=== PATIENT | female | born 1955 | race Caucasian/White ===

== ENCOUNTER 2018-03-04 13:13 | Emergency (ER) | payer OTHER ==
[~2018-03-04 13:13] MED LIST changes: -CLON1POW MC
[2018-03-04] MEDS ORDERED: CLON1POW MC (13:21)
--- NOTE | 2018-03-04 13:24 | ER Report ---
History and Physical Time Seen By MD: 13:22 HPI/ROS CHIEF COMPLAINT: Weakness, shortness of breath, chest pain HISTORY OF PRESENT ILLNESS: Patient is a 62-year-old female who is an insulin requiring diabetic who also smokes and has hypertension. For the past 2-3 week she's been complaining of episodes of chest pain but also with shortness of breath and pleuritic type chest pain. She was seen and treated initially by her primary care provider for an upper respiratory infection with some antibiotics she reports some improvement however in the last 4 days the chest pain and shortness of breath has gotten worse and so she was seen by her primary care provider today and with her risk factors she was instructed to come to the emergency department for evaluation. Patient has prior history of TIA in the past in 2010. She is not on any type of anticoagulation. She has no known prior cardiac history. REVIEW OF SYSTEMS: Constitutional: No fever, no chills. Generalized weakness weakness Eyes: No discharge. ENT: No sore throat. Cardiovascular: Chest pain Respiratory: Shortness of breath pleuritic chest pain Gastrointestinal: No abdominal pain, no vomiting. Genitourinary: No hematuria. Musculoskeletal: No back pain. Skin: No rashes. Neurological: No headache. Allergies: Coded Allergies: Quinolones (Verified Allergy, Mild, 03/04/18) Sulfa (Sulfonamide Antibiotics) (Verified Allergy, Mild, 03/04/18) Home Meds Active Scripts Cyclobenzaprine Hcl (CYCLOBENZAPRINE HCL) 10 Mg Tablet, 10 MG PO TID, #30 TAB TAKE 1 TABLET BY MOUTH THREE TIMES A DAY Prov:ESAU KAUFMAN [employer] 07/22/13 Reported Medications Clonazepam (CLONAZEPAM) 1 Gm Powder, 1 GM MC, PWD 03/04/18 Insulin Detemir (LEVEMIR) 100 Unit/Ml Injs, 100 UNIT SUBQ SS 03/16/17 Aspirin (ASPIRIN) 325 Mg Tablet, 650 MG PO QDAY, TAB 03/16/17 Enalapril Maleate (ENALAPRIL MALEATE) 10 Mg Tablet, 15 MG PO QDAY 07/22/13 Discontinued Scripts Dicyclomine Hcl (DICYCLOMINE HCL) 20 Mg Tablet, 20 MG PO QID, #60 TAB 3 Refills Prov:GRACE ORTEGA MD 03/27/17 Ondansetron (ZOFRAN ODT) 4 Mg Tab.rapdis, 4 MG PO Q6H PRN for NAUSEA/VOMITING, #20 TAB.JANA 0 Refills Prov:JULIETTE BELLA MD 03/16/17 Oxycodone Hcl/Acetaminophen (PERCOCET 5-325 MG TABLET) 1 Each Tablet, 1 EACH PO Q4H PRN for PAIN, #15 TAB 0 Refills Prov:JULIETTE BELLA MD 03/16/17 Past Medical/Surgical History Past medical history for insulin requiring diabetes, hypertension, history of smoking Reviewed Nurses Notes: Yes Hx Smoking: Yes (1/3ppd) Smoking Status: Current: Every Day Smoker Hx Substance Use Disorder: No Hx Alcohol Use: Yes (OCC) Constitutional Vital Sign - Last 24 Hours 03/04/18 03/04/18 03/04/18 03/04/18 13:17 13:21 13:28 13:30 Temp 98.0 Pulse 96 97 Resp 16 18 B/P (MAP) 137/90 (106) 137/90 125/62 (83) Pulse Ox 92 94 O2 Delivery Room Air Nasal Cannula O2 Flow Rate 2 03/04/18 03/04/18 03/04/18 03/04/18 13:35 13:48 13:48 13:53 Pulse 92 Resp 18 Pulse Ox 96 92 O2 Delivery Nasal Cannula Nasal Cannula O2 Flow Rate 2.0 2.0 1.0 03/04/18 03/04/18 03/04/18 03/04/18 13:53 13:58 14:03 14:33 Pulse 89 101 100 94 Resp 18 18 19 Pulse Ox 93 93 96 O2 Delivery Nasal Cannula Nasal Cannula Nasal Cannula O2 Flow Rate 2 2 2 03/04/18 03/04/18 03/04/18 03/04/18 14:48 14:53 15:00 15:08 Pulse 86 89 89 Resp 10 20 24 B/P (MAP) 92/64 (73) Pulse Ox 93 92 96 O2 Delivery Nasal Cannula O2 Flow Rate 2 03/04/18 03/04/18 03/04/18 03/04/18 15:23 15:30 15:38 15:53 Pulse 84 85 85 Resp 11 12 28 B/P (MAP) 118/61 (80) Pulse Ox 95 96 93 O2 Delivery Nasal Cannula Nasal Cannula O2 Flow Rate 2 2 03/04/18 03/04/18 03/04/18 16:00 16:08 16:23 Pulse 84 87 Resp 17 18 B/P (MAP) 120/64 (82) Pulse Ox 93 97 O2 Delivery Nasal Cannula Nasal Cannula O2 Flow Rate 2 2 Physical Exam General Appearance: The patient is alert, has no immediate need for airway protection and no signs of toxicity. Eyes: Pupils equal and round no pallor or injection. ENT, Mouth: Mucous membranes are moist. Respiratory: There are no retractions, lungs are clear to auscultation. Cardiovascular: Heart is tachycardic with regular rhythm and occasional PVCs Gastrointestinal: Abdomen is soft and non tender, no masses, bowel sounds normal. Neurological: Awake and alert Skin: Warm and dry, no rashes. Musculoskeletal: Neck is supple non tender. Extremities are nontender, nonswollen and have full range of motion. Medical Decision Making Data Points Result Diagram: 03/04/18 1322 03/04/18 1322 Laboratory Hematology Test 03/04/18 13:22 Red Blood Count 5.10 M/uL (4.17-5.56) Mean Corpuscular Volume 83.8 fL (80.0-96.0) Mean Corpuscular Hemoglobin 27.4 pg (26.0-33.0) Mean Corpuscular Hemoglobin Concent 32.7 g/dL (32.0-36.0) Red Cell Distribution Width 13.3 % (11.5-14.5) Mean Platelet Volume 10.4 fL (7.2-11.1) Neutrophils (%) (Auto) 49.7 % (39.4-72.5) Lymphocytes (%) (Auto) 39.7 % (17.6-49.6) Monocytes (%) (Auto) 9.3 % (4.1-12.4) Eosinophils (%) (Auto) 0.5 % (0.4-6.7) Basophils (%) (Auto) 0.8 % (0.3-1.4) Nucleated RBC Relative Count (auto) 0.1 /100WBC Neutrophils # (Auto) 3.7 K/uL (2.0-7.4) Lymphocytes # (Auto) 3.0 K/uL (1.3-3.6) Monocytes # (Auto) 0.7 K/uL (0.3-1.0) Eosinophils # (Auto) 0.0 K/uL (0.0-0.5) Basophils # (Auto) 0.1 K/uL (0.0-0.1) Nucleated RBC Absolute Count (auto) 0.01 K/uL Prothrombin Time 13.2 seconds (12.0-14.4) Prothromb Time International Ratio 1.00 Activated Partial Thromboplast Time 26 seconds (23-35) D-Dimer Quantitative (PE/DVT) 3.27 ug/ml (0-0.50) Sodium Level 138 mmol/L (137-145) Potassium Level 3.7 mmol/L (3.5-5.0) Chloride Level 106 mmol/L (98-107) Carbon Dioxide Level 26 mmol/L (22-31) Blood Urea Nitrogen 9 mg/dl (7-18) Creatinine 0.50 mg/dl (0.52-1.04) Glomerular Filtration Rate Calc > 60.0 Random Glucose 125 mg/dl (75-110) Calcium Level 9.6 mg/dl (8.4-10.2) Total Bilirubin 0.7 mg/dl (0.2-1.3) Aspartate Amino Transf (AST/SGOT) 26 U/L (0-35) Alanine Aminotransferase (ALT/SGPT) 33 U/L (0-56) Alkaline Phosphatase 111 U/L (0-126) Troponin I 0.263 ng/ml B-Type Natriuretic Peptide 455 pg/ml (0-100) Total Protein 7.0 g/dl (6.3-8.2) Albumin 4.0 g/dl (3.5-5.0) Chemistry Test 03/04/18 13:22 White Blood Count 7.4 k/uL (4.5-11.0) Red Blood Count 5.10 M/uL (4.17-5.56) Hemoglobin 14.0 g/dL (12.0-16.0) Hematocrit 42.8 % (34.0-47.0) Mean Corpuscular Volume 83.8 fL (80.0-96.0) Mean Corpuscular Hemoglobin 27.4 pg (26.0-33.0) Mean Corpuscular Hemoglobin Concent 32.7 g/dL (32.0-36.0) Red Cell Distribution Width 13.3 % (11.5-14.5) Platelet Count 192 K/uL (150-450) Mean Platelet Volume 10.4 fL (7.2-11.1) Neutrophils (%) (Auto) 49.7 % (39.4-72.5) Lymphocytes (%) (Auto) 39.7 % (17.6-49.6) Monocytes (%) (Auto) 9.3 % (4.1-12.4) Eosinophils (%) (Auto) 0.5 % (0.4-6.7) Basophils (%) (Auto) 0.8 % (0.3-1.4) Nucleated RBC Relative Count (auto) 0.1 /100WBC Neutrophils # (Auto) 3.7 K/uL (2.0-7.4) Lymphocytes # (Auto) 3.0 K/uL (1.3-3.6) Monocytes # (Auto) 0.7 K/uL (0.3-1.0) Eosinophils # (Auto) 0.0 K/uL (0.0-0.5) Basophils # (Auto) 0.1 K/uL (0.0-0.1) Nucleated RBC Absolute Count (auto) 0.01 K/uL Prothrombin Time 13.2 seconds (12.0-14.4) Prothromb Time International Ratio 1.00 Activated Partial Thromboplast Time 26 seconds (23-35) D-Dimer Quantitative (PE/DVT) 3.27 ug/ml (0-0.50) Glomerular Filtration Rate Calc > 60.0 Calcium Level 9.6 mg/dl (8.4-10.2) Total Bilirubin 0.7 mg/dl (0.2-1.3) Aspartate Amino Transf (AST/SGOT) 26 U/L (0-35) Alanine Aminotransferase (ALT/SGPT) 33 U/L (0-56) Alkaline Phosphatase 111 U/L (0-126) Troponin I 0.263 ng/ml B-Type Natriuretic Peptide 455 pg/ml (0-100) Total Protein 7.0 g/dl (6.3-8.2) Albumin 4.0 g/dl (3.5-5.0) Coagulation Test 03/04/18 13:22 Prothrombin Time 13.2 seconds Prothromb Time International Ratio 1.00 Activated Partial Thromboplast Time 26 seconds D-Dimer Quantitative (PE/DVT) 3.27 ug/ml EKG/Imaging EKG Interpretation EKG shows a sinus tachycardia with a ventricular rate of 102 bpm. Occasional premature ventricular complexes. Patient has T-wave inversions in leads 3 and aVF as well as V5 and V6. Monitor Interpretation: Normal Sinus Rhythm Imaging FACILITY: [facility] PATIENT NAME: Cristal Espinoza : 1955 MR: [id number] V: [id number] EXAM DATE: [id number] ORDERING PHYSICIAN: ANAT BYRNE TECHNOLOGIST: Location: [facility] [place] Patient: Cristal Espinoza : 1955 Visit/Account:[id number] Date of Sevice: 03/04/2018 CHEST PA AND LAT HISTORY: Chest pain. Shortness of breath. COMPARISON: None available. FINDINGS: Lines/tubes: None. Lungs/pleura: Small pleural effusions with possible focal infiltrate in the lateral left lung base. No pneumothorax. Heart: Normal heart size. Mediastinum: Normal mediastinal contours. Bony structures/body wall: No acute osseous findings. IMPRESSION: Small pleural effusions with possible focal infiltrate in the lateral left lung base. No pneumothorax. Report Dictated By: Agus Whalen MD at 03/04/2018 2:49 PM Report E-Signed By: Agus Whalen MD at 03/04/2018 2:52 PM WSN:[facility] FACILITY: [facility] PATIENT NAME: Cristal Espinoza : 1955 MR: [id number] V: [id number] EXAM DATE: [id number] ORDERING PHYSICIAN: ANAT BYRNE TECHNOLOGIST: Location: [facility] [place] Patient: Cristal Espinoza : 1955 Visit/Account:[id number] Date of Sevice: 03/04/2018 EXAMINATION: CT CHEST PULMONARY ANGIOGRAM COMPARISON: None available HISTORY: Chest x-ray same day and earlier. PROCEDURE: Pulmonary arterial phase imaging of the chest with 75 mL intravenous Isovue 370. Reconstruction of the source data set includes multiplanar 2D in the sagittal and coronal planes, and 3D reconstructed coronal slab MIP series. One of the following dose optimization techniques was utilized in the performance of this exam: Automated exposure control; adjustment of the mA and/or kV according to the patient's size; or use of an iterative reconstruction technique. Specific details can be referenced in the facility's radiology CT exam operational policy. FINDINGS: Pulmonary vasculature: There is good contrast opacification of the pulmonary arterial system. No pulmonary embolism. Main pulmonary artery size is normal. Cardiac and mediastinum: Cardiac chamber size is normal. No pericardial effusion. Mild coronary calcifications. No thoracic aortic aneurysm. Lymph nodes: Numerous prominent lymph nodes including a dominant 2.5 x 1.5 cm tavia collection in the aortopulmonary window. Lungs and pleura: Bilateral small simple appearing pleural effusions. Dependent atelectasis. Equivocal small consolidation in the left lower lobe along the lateral costophrenic space. Questionable tree-in-bud density predominantly in both upper lobes. The pulmonary arteries perfusing this region are patent. No pneumothorax or edema. Airways: Negative. Upper abdomen: No acute findings. Osseous structures: Mild degenerative change. No acute findings. IMPRESSION: 1. No pulmonary embolism. 2. Bilateral small pleural effusions. 3. Equivocal small density in the left lower lobe lateral costophrenic space is favored to be atelectasis although pneumonia is a possibility. The pulmonary arteries perfusing this region are patent and infarct is considered unlikely. 4. Very subtle tree-in-bud density in both upper lungs is suggestive of infectious bronchiolitis. 5. Coronary calcifications. 6. Mild mediastinal lymph node enlargement. Although nonspecific, given the other findings reactive lymph node enlargement is favored but if there are risk factors for malignancy CT follow-up is recommended. Report Dictated By: Tony Mart MD at 03/04/2018 3:05 PM Report E-Signed By: Tony Mart MD at 03/04/2018 3:19 PM WSN:[id number] ED Course/Re-evaluation ED Course Patient with both elevated troponin and elevated d-dimer. At this time will be to give 1 mg/kg of subcutaneous Lovenox, patient already received aspirin. Patient denies any chest pain currently. Plan will be CT scan of the chest with IV contrast to look for pulmonary embolism I RAD discussed with the patient about possible transport to higher level of care 03/04/2018 3:58:[address] scan of the chest negative for PE. I spoke with the hospitalists at [facility] has agreed to accept patient at this time. Patient and aware and agreed to transport at this time Decision to Disposition Date: Mar 04, 2018 Decision to Disposition Time: 15:58 Depart Departure Latest Vital Signs Vital Signs Date Time Temp Pulse Resp B/P (MAP) Pulse Ox O2 Delivery O2 Flow Rate FiO2 03/04/18 16:23 87 18 97 Nasal Cannula 2 03/04/18 16:00 120/64 (82) 03/04/18 13:21 98.0 Impression: Primary Impression: NSTEMI (non-ST elevated myocardial infarction) Condition: Improved Disposition: XFER TO [facility] (to DR Barber) Referrals: NGOC BARCLAY DO (PCP) ANAT BYRNE MD Mar 04, 2018 13:24
[2018-03-04] MEDS ORDERED: ASPIRIN 81 MG CHEW PO ONE (13:25)
--- NOTE | 2018-03-04 13:27 | EKG ---
[facility] PATIENT NAME: SONIA LEE : [id number] MR: [id number] V: [id number] EXAM DATE: ORDERING PHYSICIAN: ANAT BYRNE TECHNOLOGIST: Test Reason : cp Blood Pressure : / mmHG Vent. Rate : 102 BPM Atrial Rate : 102 BPM P-R Int : 156 ms QRS Dur : 090 ms QT Int : 358 ms P-R-T Axes : 060 051 -53 degrees QTc Int : 466 ms Sinus tachycardia with occasional premature ventricular complexes ST and T wave abnormality, consider inferolateral ischemia Abnormal ECG No previous ECGs available Confirmed by VENANCIO CRUZ ([id number]) on 03/04/2018 9:59:39 PM Referred By: Confirmed By:VENANCIO CRUZ
[2018-03-04 13:32] LABS: PLATELET COUNT, AUTOMATED 192 K/uL (150-450)
[2018-03-04] MEDS ORDERED: ALBUTEROL/IPRATROPIUM 3 ML NEB NEB ONE (13:35)
[2018-03-04] MEDS ORDERED: ENOXAPARIN 100 MG/ML SYR SC ONE (13:55)
[2018-03-04] MEDS ORDERED: NS(*) 0.9% 50 ML BAG 50 ML ONE (14:21)
[2018-03-04] MEDS ORDERED: IOPAMIDOL 76% 75 ML INFUS BTL 75 ML ONE (14:21)
--- NOTE | 2018-03-04 14:55 | RADIOLOGY IMAGING REPORT ---
FACILITY: [facility] PATIENT NAME: Cristal Espinoza : 1955 MR: [id number] V: [id number] EXAM DATE: ORDERING PHYSICIAN: ANAT BYRNE TECHNOLOGIST: Location: Patient: Cristal Espinoza : 1955 Visit/Account:[id number] Date of Sevice: 03/04/2018 CHEST PA AND LAT HISTORY: Chest pain. Shortness of breath. COMPARISON: None available. FINDINGS: Lines/tubes: None. Lungs/pleura: Small pleural effusions with possible focal infiltrate in the lateral left lung base. No pneumothorax. Heart: Normal heart size. Mediastinum: Normal mediastinal contours. Bony structures/body wall: No acute osseous findings. IMPRESSION: Small pleural effusions with possible focal infiltrate in the lateral left lung base. N o pneumothorax. Report Dictated By: Agus Whalen MD at 03/04/2018 2:49 PM Report E-Signed By: Agus Whalen MD at 03/04/2018 2:52 PM WSN:[id number]
--- NOTE | 2018-03-04 15:23 | RADIOLOGY IMAGING REPORT ---
FACILITY: [facility] PATIENT NAME: Cristal Espinoza : 1955 MR: [id number] V: [id number] EXAM DATE: ORDERING PHYSICIAN: ANAT BYRNE TECHNOLOGIST: Location: [facility] Patient: Cirstal Espinoza : 1955 Visit/Account:[id number] Date of Sevice: 03/04/2018 EXAMINATION: CT CHEST PULMONARY ANGIOGRAM COMPARISON: None available HISTORY: Chest x-ray same day and earlier. PROCEDURE: Pulmonary arterial phase imaging of the chest with 75 mL intravenous Isovue 370. Reconstru ction of the source data set includes multiplanar 2D in the sagittal and coronal planes, and 3D recon structed coronal slab MIP series. One of the following dose optimization techniques was utilized in the performance of this exam: Autom ated exposure control; adjustment of the mA and/or kV according to the patient's size; or use of an i terative reconstruction technique. Specific details can be referenced in the facility's radiology C T exam operational policy. FINDINGS: Pulmonary vasculature: There is good contrast opacification of the pulmonary arterial system. No pul monary embolism. Main pulmonary artery size is normal. Cardiac and mediastinum: Cardiac chamber size is normal. No pericardial effusion. Mild coronary calci fications. No thoracic aortic aneurysm. Lymph nodes: Numerous prominent lymph nodes including a dominant 2.5 x 1.5 cm tavia collection in the aortopulmonary window. Lungs and pleura: Bilateral small simple appearing pleural effusions. Dependent atelectasis. Equivoca l small consolidation in the left lower lobe along the lateral costophrenic space. Questionable tree- in-bud density predominantly in both upper lobes. The pulmonary arteries perfusing this region are pa tent. No pneumothorax or edema. Airways: Negative. Upper abdomen: No acute findings. Osseous structures: Mild degenerative change. No acute findings. IMPRESSION: 1. No pulmonary embolism. 2. Bilateral small pleural effusions. 3. Equivocal small density in the left lower lobe lateral costophrenic space is favored to be atelect asis although pneumonia is a possibility. The pulmonary arteries perfusing this region are patent and infarct is considered unlikely. 4. Very subtle tree-in-bud density in both upper lungs is suggestive of infectious bronchiolitis. 5. Coronary calcifications. 6. Mild mediastinal lymph node enlargement. Although nonspecific, given the other findings reactive l ymph node enlargement is favored but if there are risk factors for malignancy CT follow-up is recomme nded. Report Dictated By: Tony Mart MD at 03/04/2018 3:05 PM Report E-Signed By: Tony Mart MD at 03/04/2018 3:19 PM WSN:[id number]
[2018-03-04 16:00] VITALS: BP 120/64
== END 2018-03-04 17:00 | disposition short-term general hospital (02) ==
LOC: ER 13:21
DX: I21.4 Non-ST elevation (NSTEMI) myocardial infarction (principal); J90 Pleural effusion, not elsewhere classified
CPT/HCPCS: 71046; 71275; 83880; 84484; 85025; 85379; 85610; 85730; 93005; 94640; 96372; 99285; J1650; J7050; J7620; Q9967; 82040; 82247; 82310; 82374; 82435; 82565; 82947; 84075; 84132; 84155; 84295; 84450; 84460; 84520

== ENCOUNTER → 2018-03-04 | Outpatient (CLI) | payer OTHER ==
[~2018-03-04] MED LIST: ASPI-757 PO; ASPI-879 PO; CLON1POW MC; CYCL10TA29 PO; DICY20TA70 PO; ENAL-18 PO; HUM100IN4 SQ; HYDR12.558 PO; LEVI SUBQ; METXR500 PO; ONDA4TAB PO; OXYC-865 PO; PER PO
== END ==
LOC: AMB 16:44
PROVIDERS: ATTEND Nurse Practitioner
DX: R06.02 Shortness of breath (principal); R79.89 Other specified abnormal findings of blood chemistry
CPT/HCPCS: A0425; A0428